=== PATIENT | female | born 1960 | race Hispanic/Latino ===

== ENCOUNTER → 2018-04-07 | Outpatient (CLI) | payer OTHER ==
--- NOTE | 2018-04-07 10:23 | Diagnostic Imaging Report ---
TECHNIQUE: Magnetic resonance imaging of the RIGHT KNEE was performed WITHOUT injected contrast. HISTORY: Right knee pain COMPARISON: None available. FINDINGS: LIGAMENTS AND TENDONS: ACL: Intact PCL: Intact Collateral ligaments: Intact Iliotibial band: Unremarkable Popliteal tendon: Intact Extensor mechanism: Intact JOINT: Menisci: Medial: Degenerative signal without tear. Lateral: Degenerative signal without tear. Articular Cartilage: Medial Compartment: Diffuse partial thickness cartilage loss Lateral Compartment: Diffuse partial thickness cartilage loss Patellofemoral Compartment: Diffuse partial thickness cartilage loss with focal intermediate grade fissure of the lateral facet Joint Fluid: The amount of fluid within the joint is within physiologic limits. BONE: No focal or infiltrative bone marrow replacing abnormality. No acute fracture. SOFT TISSUES: Posterior recess ganglion. Mild strain of the vastus medialis. IMPRESSION: No acute osseous, ligamentous, or meniscal abnormality. Tricompartmental partial thickness cartilage loss. Mild strain of the vastus medialis. Signed by: Dr. Kenrick Watson M.D. on 04/07/2018 10:20 AM
== END ==
LOC: MRI 08:57
PROVIDERS: ATTEND Family Medicine
DX: S89.91XA Unspecified injury of right lower leg, initial encounter (principal)